=== PATIENT | female | born 1990 | race American Indian/Alaskan Native ===

== ENCOUNTER 2017-05-04 10:28 | Emergency (ER) | payer SELFPAY ==
[2017-05-04 10:48] VITALS: BP 110/61
[2017-05-04 11:05] LABS: Basophils % (Auto) 0.6 % (0.0-1.8); Hematocrit 36.9 % (30.3-42.9); Mean Corpuscular HGB Conc 32 % (30-34); Mean Corpuscular Hemoglobin 29 pg (28-32); Mean Corpuscular Volume 90 fl (79-97); Platelet Count 200 K/mm3 (140-440); Red Blood Count 4.08 M/mm3 (3.65-5.03); Red Cell Distribution Width 14.3 % (13.2-15.2); White Blood Count 5.4 K/mm3 (4.5-11.0)
[2017-05-04 11:23] LABS: Anion Gap 17 mmol/L; BUN/Creatinine Ratio 85; Blood Urea Nitrogen 17 mg/dL (7-17); Calcium 8.1 mg/dL (8.4-10.2); Carbon Dioxide 22 mmol/L (22-30); Chloride 105.6 mmol/L (98-107); Glucose 92 mg/dL (65-100); Potassium 4.1 mmol/L (3.6-5.0); Sodium 140 mmol/L (137-145)
== END 2017-05-04 13:49 | disposition left against medical advice (07) ==
LOC: ED 10:28
DX: R07.9 Chest pain, unspecified (principal); Z53.21 Procedure and treatment not carried out due to patient leaving prior to being seen by health care provider
CPT/HCPCS: 36415; 80048; 84484; 85025; 93005; 93010

== ENCOUNTER 2017-05-05 06:37 | Emergency (ER) | payer SELFPAY ==
[2017-05-05 07:48] LABS: Basophils % (Auto) 1.1 % (0.0-1.8); Eosinophils % (Auto) 1.3 % (0.0-4.3); Hematocrit 36.1 % (30.3-42.9); Hemoglobin 12.2 gm/dl (10.1-14.3); Mean Corpuscular HGB Conc 34 % (30-34); Mean Corpuscular Hemoglobin 30 pg (28-32); Mean Corpuscular Volume 89 fl (79-97); Platelet Count 192 K/mm3 (140-440); Red Blood Count 4.04 M/mm3 (3.65-5.03); Red Cell Distribution Width 14.1 % (13.2-15.2); White Blood Count 5.4 K/mm3 (4.5-11.0)
[2017-05-05 08:09] LABS: Anion Gap 16 mmol/L; BUN/Creatinine Ratio 23; Blood Urea Nitrogen 14 mg/dL (7-17); Calcium 8.4 mg/dL (8.4-10.2); Carbon Dioxide 22 mmol/L (22-30); Chloride 104.6 mmol/L (98-107); Glucose 109 mg/dL (65-100); Potassium 3.9 mmol/L (3.6-5.0); Sodium 139 mmol/L (137-145)
--- NOTE | 2017-05-05 10:16 | Emergency Department Report ---
ED Chest Pain HPI - General Chief Complaint: Chest Pain Stated Complaint: CHEST PAIN Time Seen by Provider: 05/05/17 10:08 Source: patient Mode of arrival: Ambulatory Limitations: No Limitations - History of Present Illness Initial Comments: Patient is 27 years old female with no significant past medical history coming today was left sided chest pain started 2 weeks ago, described as a sharp pain increased with inspiration no ideation associated with cough. Patient denied any fever shortness of breath nausea or vomiting. MD Complaint: chest pain -: week(s) (two) Onset: during rest Pain Location: left chest Pain Radiation: none Severity scale (0 -10): 4 Quality: sharp Consistency: intermittent Improves With: nothing Worsens With: inspiration Other Symptoms: cough. denies: fever, syncope Treatments Prior to Arrival: none - Related Data Previous Rx's Medication Instructions Recorded Last Taken Type Amoxicillin [Amoxicillin TAB] 875 mg PO BID #14 tablet 05/05/17 Unknown Rx Naproxen [Naprosyn] 500 mg PO BID #14 tablet 05/05/17 Unknown Rx Allergies Allergy/AdvReac Type Severity Reaction Status Date / Time No Known Allergies Allergy Unverified 05/04/17 10:43 Heart Score - HEART Score History: Slightly suspicious EKG: Normal Age: < 45 Risk factors: 1-2 risk factors Troponin: < normal limit HEART Score: 1 - Critical Actions Critical Actions: 0-3 pts:0.9-1.7%risk of adverse cardiac event.Candidate for discharge ED Review of Systems ROS: Stated complaint: CHEST PAIN Other details as noted in HPI Comment: All other systems reviewed and negative Constitutional: denies: chills, fever ENT: denies: ear pain, throat pain Respiratory: cough. denies: orthopnea, shortness of breath, SOB with exertion Cardiovascular: chest pain. denies: palpitations, dyspnea on exertion Gastrointestinal: denies: abdominal pain, nausea, vomiting Genitourinary: denies: urgency, dysuria ED Past Medical Hx - Past Medical History Previous Medical History?: No - Surgical History Past Surgical History?: No - Social History Smoking Status: Never Smoker Substance Use Type: Marijuana - Medications Home Medications: Home Medications Medication Instructions Recorded Confirmed Last Taken Type Amoxicillin [Amoxicillin TAB] 875 mg PO BID #14 tablet 05/05/17 Unknown Rx Naproxen [Naprosyn] 500 mg PO BID #14 tablet 05/05/17 Unknown Rx ED Physical Exam - General Limitations: No Limitations General appearance: alert, in no apparent distress - Head Head exam: Present: atraumatic, normocephalic - Eye Eye exam: Present: normal appearance - ENT ENT exam: Present: normal exam, normal orophraynx, mucous membranes moist, TM's normal bilaterally - Neck Neck exam: Present: normal inspection, full ROM - Respiratory Respiratory exam: Present: normal lung sounds bilaterally. Absent: respiratory distress, wheezes, rales, rhonchi, chest wall tenderness, decreased breath sounds, prolonged expiratory - Cardiovascular Cardiovascular Exam: Present: regular rate, normal rhythm, normal heart sounds - GI/Abdominal GI/Abdominal exam: Present: soft, normal bowel sounds. Absent: distended, tenderness, guarding, rebound, mass, bruit, pulsatile mass, hernia - Extremities Exam Extremities exam: Present: normal inspection, full ROM - Back Exam Back exam: Present: normal inspection. Absent: CVA tenderness (R), CVA tenderness (L) - Neurological Exam Neurological exam: Present: alert, oriented X3, CN II-XII intact, normal gait - Skin Skin exam: Present: warm, intact, normal color. Absent: cyanosis ED Course Vital Signs 05/05/17 05/05/17 06:49 10:21 Temperature 98.0 F Pulse Rate 66 65 Respiratory 18 12 Rate Blood Pressure 90/60 99/64 O2 Sat by Pulse 99 100 Oximetry - Reevaluation(s) Reevaluation #1: 05/05/17 11:30 Patient stated that she is feeling much better no chest pain at this moment. ED Medical Decision Making - Lab Data Result diagrams: 05/05/17 07:21 05/05/17 07:21 - EKG Data -: EKG Interpreted by Or EKG shows normal: sinus rhythm Rate: normal, bradycardia - EKG Data Interpretation: no acute changes - Radiology Data Radiology results: report reviewed Chest x-ray unremarkable - Medical Decision Making Patient stated that she is feeling better this is an atypical chest pain. Critical care attestation.: If time is entered above; I have spent that time in minutes in the direct care of this critically ill patient, excluding procedure time. ED Disposition Clinical Impression: Chest pain, Acute bronchitis Disposition: DC-01 TO HOME OR SELFCARE Is pt being admited?: No Condition: Stable Instructions: Chest Pain (ED), Acute Bronchitis (ED), Costochondritis (ED) Referrals: PRIMARY CARE,MD [Primary Care Provider] - 3-5 Days
--- NOTE | 2017-05-05 11:13 | XRay Report ---
Single view chest: History: Chest pain. Findings: Normal cardiomediastinal silhouette. Trachea is midline. No consolidation, pneumothorax or pleural effusion. Impression: No acute cardiopulmonary findings.
[2017-05-05 11:50] VITALS: BP 102/70
== END 2017-05-05 11:50 | disposition home or self-care (01) ==
LOC: ED 06:37
DX: J20.9 Acute bronchitis, unspecified (principal); F12.10 Cannabis abuse, uncomplicated
CPT/HCPCS: 36415; 71010; 80048; 81025; 84484; 85025; 93005; 93010; 99284

== ENCOUNTER 2017-07-09 11:50 | Emergency (ER) | payer OTHER ==
[2017-07-09 12:02] VITALS: BP 110/47
--- NOTE | 2017-07-09 13:30 | Emergency Department Report ---
HPI - General Chief Complaint: Wound/Laceration Time Seen by Provider: 07/09/17 13:21 - HPI HPI: Is a 27-year-old female who presents to ED complaining of left hand pain 1 day. Patient states she was playing with her dogs earlier this morning when she accidentally his prescription ahead and nondistended. Patient states she sustained some cuts and had some minimal bleeding which resolved. Patient denies any other symptoms she is able to use hands with no problems to some pain from cuts. ED Past Medical Hx - Past Medical History Previous Medical History?: No - Surgical History Past Surgical History?: No - Social History Smoking Status: Never Smoker Substance Use Type: None - Medications Home Medications: Home Medications Medication Instructions Recorded Confirmed Last Taken Type Amoxicillin [Amoxicillin TAB] 875 mg PO BID #14 tablet 05/05/17 Unknown Rx Naproxen [Naprosyn TAB] 500 mg PO BID #14 tablet 07/09/17 Unknown Rx Neomycin/Bacitracin/Polymyxinb 1 applic TP TID #1 tube 07/09/17 Unknown Rx [Triple Antibiotic Ointment] ED Review of Systems ROS: Stated complaint: LACERATION Other details as noted in HPI Constitutional: denies: chills, fever Eyes: denies: eye pain, eye discharge, vision change ENT: denies: ear pain, throat pain Respiratory: denies: cough, shortness of breath, wheezing Cardiovascular: denies: chest pain, palpitations Endocrine: no symptoms reported Gastrointestinal: denies: abdominal pain, nausea, vomiting, diarrhea Genitourinary: denies: urgency, dysuria, discharge Musculoskeletal: denies: back pain, joint swelling, arthralgia Skin: other (2 cuts on palm of lft hand). denies: rash, lesions, pruritus Neurological: denies: headache, weakness, paresthesias Hematological/Lymphatic: denies: easy bleeding, easy bruising Physical Exam - Physical Exam Vital Signs: Vital Signs 07/09/17 11:59 Temperature 98 F Pulse Rate 66 Respiratory 18 Rate Blood Pressure 110/47 O2 Sat by Pulse 100 Oximetry Physical Exam: GENERAL: Alert and oriented x3, no apparent distress, Normal Gait, atraumatic. HEAD: Head is normocephalic and a-traumatic. LUNGS: Symetrical with respiration, No wheezing, no rales or crackles, CTAB. HEART: S1, S2 present, regular rate and rhythm without murmur, no rubs, no gallops. Non tender to palpation EXTREMITIES/MUSCULOSKELETAL: No cyanosis, clubbing, rash, lesions or edema. Full ROM bilaterally. UE/LE Pulses 2+ bilaterally. 1 cm superficial of Avulsed skin flap on left palm proximal to thumb. Not a deep laceration/cut. NEUROLOGIC: The patient is cooperative with no focal neurologic deficits. Cranial nerves II through XII are grossly intact. Normal speech. Normal sensation in bilateral upper and lower extremities, No loss of sensation, SKIN: Warm and dry, No lesions, No ulceration or induration present. ED Course Vital Signs 07/09/17 11:59 Temperature 98 F Pulse Rate 66 Respiratory 18 Rate Blood Pressure 110/47 O2 Sat by Pulse 100 Oximetry ED Medical Decision Making - Medical Decision Making 27-year-old female presents with superficial laceration of the hand ED course: Patient's wound was cleaned with Betadine and flushed with 50 mL normal saline non adhesive strips applied to wound and wound was sterilely draped in sterile gauze wrap. Discussed with patient to apply Neosporin 3 times a day. Discussed patient to keep wound dry. Patient tolerated procedure well. She is alert and oriented 3 with no acute respiratory distress Vital signs are normal. I discussed the patient private physician. I discussed the patient if any worsening symptoms to return. The patient had an uneventful ED stay,she understands instructions given Critical care attestation.: If time is entered above; I have spent that time in minutes in the direct care of this critically ill patient, excluding procedure time. ED Disposition Clinical Impression: Abrasion hand Qualifiers: Encounter type: initial encounter Laterality: left Qualified Code(s): S60.512A - Abrasion of left hand, initial encounter Disposition: DC- TO HOME OR SELFCARE Is pt being admited?: No Does the pt Need Aspirin: No Condition: Stable Instructions: Acute Wound Care (ED) Additional Instructions: Make sure to follow up with the primary care physician as discussed. Take all your medications as you've been prescribed. If you have any worsening symptoms or develop new symptoms please return to ED immediately. Prescriptions: Naproxen [Naprosyn TAB] 500 mg PO BID #14 tablet Neomycin/Bacitracin/Polymyxinb [Triple Antibiotic Ointment] 1 applic TP TID #1 tube Referrals: PRIMARY CARE, [Primary Care Provider] - 3-5 Days [facility] [Outside] - 3-5 Days [facility] [Outside] - 3-5 Days [facility] [Outside] - 3-5 Days Forms: Work/School Release Form(ED) Time of Disposition: 13:32
== END 2017-07-09 13:40 | disposition home or self-care (01) ==
LOC: ED 11:50
DX: S61.402A Unspecified open wound of left hand, initial encounter (principal); W45.8XXA Other foreign body or object entering through skin, initial encounter; Y93.89 Activity, other specified; Y99.8 Other external cause status; Y92.89 Other specified places as the place of occurrence of the external cause
CPT/HCPCS: 99282

== ENCOUNTER 2017-09-01 07:03 | Emergency (ER) | payer SELFPAY ==
[2017-09-01 12:25] VITALS: BP 107/69
--- NOTE | 2017-09-01 12:31 | Emergency Department Report ---
Chief Complaint: Upper Respiratory Infection Stated Complaint: FLU-LIKE SX - HPI History of Present Illness: 27 yo female presents with URI symptoms. MSE performed. Patient does not have a life or limb threatening emergency. No indication of PNA or bacterial infection. Patient is dc'd from ED without further intervention. - Exam Vital Signs: Vital Signs 09/01/17 09/01/17 09/01/17 07:39 12:21 12:25 Temperature 98.0 F 98.1 F Pulse Rate 70 79 Respiratory 18 Rate Blood Pressure 104/70 107/69 O2 Sat by Pulse 99 98 Oximetry MSE screening note: Focused history and physical exam performed. Due to findings the following was ordered: ED Disposition for MSE Clinical Impression: URI (upper respiratory infection) Disposition: MED SCREENING EXAM-LEFT Is pt being admited?: No Does the pt Need Aspirin: No Condition: Stable Instructions: Upper Respiratory Infection (ED) Referrals: PRIMARY CARE [Primary Care Provider] - 3-5 Days Time of Disposition: 12:31
== END 2017-09-01 12:33 | disposition left against medical advice (07) ==
LOC: ED 07:03
DX: R09.89 Other specified symptoms and signs involving the circulatory and respiratory systems (principal); Z53.21 Procedure and treatment not carried out due to patient leaving prior to being seen by health care provider